=== PATIENT | female | born 1985 | race Asian ===

== ENCOUNTER 2017-09-06 19:31 | Inpatient (IN) | payer MEDICAID ==
[~2017-09-06] VITALS: Ht 152.4 cm; Wt 65.8 kg
[2017-09-06] MEDS ORDERED: fentaNYL CITR 100 MCG/2 ML AMP IVP PRN (21:10)
[2017-09-06] MEDS ORDERED: ACETAMINOPHEN 325 MG TAB PO PRN (21:10)
[2017-09-06] MEDS ORDERED: ONDANSETRON 4 MG/2 ML VIAL IVP PRN (21:10)
[2017-09-06] MEDS ORDERED: FAMOTIDINE 20 MG TAB PO PRN (21:10)
[2017-09-06 21:14] VITALS: BP 114/77; Ht 152.4 cm; Wt 65.8 kg
[2017-09-06] MEDS ORDERED: CALC-515 PO (21:53)
[2017-09-06] MEDS ORDERED: PREN-127 PO (21:53)
[2017-09-06 21:56] LABS: PLATELET COUNT, AUTOMATED 157 K/uL (150-450)
[2017-09-06] MEDS ORDERED: OXYTOCIN 30 UNIT/D5LR 500 ML 500 ML IV PRN (22:30)
[2017-09-06] MEDS: LR(*) 1000 ML BAG 1,000 ML IV PRN (23:34)
--- NOTE | 2017-09-07 05:39 | History & Physical ---
History of Present Illness Age of Patient: 31 : 1 Para or TPAL: 0 EDC per LMP: Sep 08, 2017 EDC per U/S: Sep 09, 2017 Estimated Gestational Age: 39.6 Chief Complaint Water Broke History of Present Illness Pt is a 31 y/o @ 39-6/7 weeks gestation who presents to L&D with a chief complaint of "I think my water broke." Pt reports a large gush of fluid around 1830 last night. Pt denies any color to the fluid. Good movement. No vaginal bleeding. History Patient's Blood Type: O Positive Rubella Status: Immune Group B Strep Screen: Negative Obstetrical History: Past Medical History: Coffee intolerance Allergies: Uncoded Allergies: NKDA (Allergy, Unknown, 09/06/17) Social History: Denies X 3 Med Rec Home Meds Reported Medications Calcium Carbonate (TUMS) 200 Mg Tab.chew, 200 MG PO Y for HEARTBURN, TAB.CHEW 09/06/17 Vits W-Ca,Fe,Fa(<1MG) ( VITAMINS) 1 Each Tablet, 1 EACH PO DAILY, TAB 09/06/17 Review of Systems All Systems Reviewed/Normal: Yes, Except as Noted Constitutional: No Fever, No Weight Loss, No Weight Gain, No Chills, No Night Sweats, No Other Neurological: No Syncope, No Confusion, No Weakness, No Dizziness, No Slurred Speech, No Other Eyes: No Vision Change, No Loss of Vision, No Photophobia, No Other ENT: No Hearing Loss, No Sinus Congestion, No Sore Throat, No Ear Ache, No Tinnitus, No Other Cardiovascular: No Chest Pain, No Palpitations, No Orthostatic Hypotension, No Other Respiratory: No Shortness of Breath, No Cough, No Wheezing, No Other Gastrointestinal: No Nausea, No Vomiting, No Diarrhea, No Dysphagia, No Constipation, No Early Satiety, No Hematemesis, No Hematochezia, No Melena, No Abdominal Pain, No Other Genitourinary: No Dysuria, No Hematuria, No Urinary Incontinence, No Other Musculoskeletal: No Pain, No Sprain, No Strain, No Impaired Mobility, No Other Psychiatric: No Depression, No Anxiety, No Other Exam General Exam Vital Signs Vital Signs Date Time Temp Pulse Resp B/P (MAP) Pulse Ox O2 Delivery O2 Flow Rate FiO2 09/06/17 21:14 98.4 90 16 114/77 (89) General Apperance: Alert/Awake/No Acute Distress Neuro: No Gross deficits Eyes: Normal Extraocular Movement & Vison, PERRLA ENT: Normal Cardiovascular: Regular Rate and Rhythm Respiratory: No Respiratory Distress, Clear to Auscultation Abdomen: Soft, Non-Tender, Non-Distended, Gravid - Non-Tender : Normal Musculoskeletal: No Weakness/Pain Extremities: No Cyanosis,Clubbing or Edema Integumentary: Skin Intact without Lesions or Rash Psychological: Appropriate Mood & Affect Cervical Dialation: 3 Cervical Effacement (%): 90 Cervical Consistency: Soft Cervical Position: Anterior Station: -3 Presentation: Vertex (confirmed by bedside sono) Uterine Contractions(Q min): 3 Uterine Contraction Strength: Mild UC Resting Tone: Soft Fetus Feeling Movement?: Yes Heart Tones: 125 Heart Tone Variabilty: Moderate FHT Accelerations: 15X15 FHT Decelerations: None FHT Category: I Medical Decision Making Data Points Result Diagram: 09/06/172143 Pre-Admit Course Medical Record Review: Yes VTE Prophylasis: Adult Deep Vein Thrombosis/Pulmonary: No Assessment and Plan MANAGER BUSINESS SYSTEMS Assessment: Stable Problems: (1) 39 weeks gestation of (2) Rupture of membranes with clear amniotic fluid Assessment & Plan: Made no cervical change after 2 hours. Augmented with Oxytocin. Pt doesn't desire epidural at this time. PUMA CUNNINGHAM DO Sep 07, 2017 05:38
--- NOTE | 2017-09-07 07:18 | Labor Progress Note ---
Labor Subjective Progress Notes Subjective Breathing through contractions. Feeling Movement?: No Vaginal Discharge/Fluid: Bloody Show Labor Pain: Mild Neurological: No Headache, No Other Eyes: No Visual Disturbances Labor Objective Vital Signs Vital Signs Date Time Temp Pulse Resp B/P (MAP) Pulse Ox O2 Delivery O2 Flow Rate FiO2 09/06/17 21:14 98.4 90 16 114/77 (89) Cervical Dialation: 4 Cervical Effacement (%): 90 Cervical Consistency: Soft Cervical Position: Anterior Station: -1 Presentation: Vertex Uterine Contractions(Q min): 3 Uterine Contraction Strength: Moderate UC Resting Tone: Soft Fetus Heart Tones: 125 Heart Tone Variabilty: Moderate FHT Accelerations: 15X15 FHT Decelerations: None FHT Category: I Other Result Diagram: 09/06/172143 Assessment and Plan SYSTEMS SOFTWARE ENGINEER Assessment: Stable SYSTEMS SOFTWARE ENGINEER Plan: Routine Labor/Induct Care Problems: (1) 39 weeks gestation of Assessment & Plan: Significant change of station but no change in dilation. Will increase oxytocin. Pt desires to go with out an epidural. (2) Rupture of membranes with clear amniotic fluid PUMA CUNNINGHAM DO Sep 07, 2017 07:18
[2017-09-07] MEDS: LR(*) 1000 ML BAG 1,000 ML IV PRN (07:33)
--- NOTE | 2017-09-07 08:49 | Labor Progress Note ---
Labor Subjective Progress Notes Subjective Oxytocin at 4 milliunits/minute, with contractions Q 2-3.5 minutes. Tolerating contractions well, without analgesia. Labor Objective Vital Signs Vital Signs Date Time Temp Pulse Resp B/P (MAP) Pulse Ox O2 Delivery O2 Flow Rate FiO2 09/06/17 21:14 98.4 90 16 114/77 (89) Cervical Dialation: 6 Cervical Effacement (%): 100 Station: -1 Fetus Heart Tones: 120 FHT Category: I Other Result Diagram: 09/06/179 Assessment and Plan Problems: (1) 39 weeks gestation of Assessment & Plan: Good progress in labor. Continue IV Oxytocin. Still not interested in epidural. (2) Rupture of membranes with clear amniotic fluid WESTON SIMMONS MD Sep 07, 2017 08:49
[2017-09-07] MEDS ORDERED: LANOLIN OINT 7 GM TUBE TP PRN (15:40)
[2017-09-07] MEDS ORDERED: HYDROmorphone HCL 2 MG TAB PO PRN (15:40)
[2017-09-07] MEDS ORDERED: HYDROCORTISONE 2.5% CR 30GM TB PR PRN (15:40)
[2017-09-07] MEDS ORDERED: GLYCERIN/WITCH HAZEL LEAF 1 PK TP PRN (15:40)
[2017-09-07] MEDS ORDERED: BENZOCAINE 20% 60 ML BTL TP PRN (15:40)
--- NOTE | 2017-09-07 15:47 | OB Delivery Note ---
Delivery Note Vaginal Delivery Type: Spont. Vaginal Delivery Delivery Date: Sep 07, 2017 Delivery Time: 15:03 Estimated Gestational Age(wks): 39 6/7 Length of Labor Stage I (hrs): 9.06 Length of Labor Stage II (hrs): 1.46 Labor Stage III (minutes): 7 Delivery Anesthesia: Local, IV Opiate Sex: Female Infant Weight (gms): 3092 (6# 13.1 oz) Antlers Apgars: 1 Minute (8), 5 Minute (9) Repair Needed: Laceration, Perineal (midline), 2nd Degree Estimated Blood Loss: 400 (mildly less than average) Delivery Complications: Laceration Notes: Spontaneous controlled vaginal delivery over an intact perineum of a health female infant. 2nd degree midline perineal laceration, repaired like an episiotomy in layers with a continuous suture of 3-0 Vicryl. Digital rectal exam shows no sutures or defects in the rectum. No other complications. Mushroom Sorter Grader in Attendence: No Copies to: WESTON SIMMONS MD, MARK F MD Sep 07, 2017 15:47
[2017-09-07] MEDS ORDERED: IBUPROFEN 800 MG TAB PO SCH (17:00)
[2017-09-07 18:10] VITALS: BP 118/71
[2017-09-07] MEDS ORDERED: LIDOCAINE 1% LOCAL 300 MG/30ML INJ ONE (18:55)
[2017-09-07] MEDS: IBUPROFEN 800 MG TAB PO SCH (19:42)
[2017-09-07 20:20] VITALS: BP 116/73
[2017-09-07] MEDS: DOCUSATE CALCIUM 240 MG CAP PO SCH (21:00)
[2017-09-08] VITALS (7 sets, daily range): BP systolic 98–121; BP diastolic 58–73
[2017-09-08] MEDS: IBUPROFEN 800 MG TAB PO SCH ×3 (02:30→21:10)
--- NOTE | 2017-09-08 07:53 | OB/GYN Progress Note ---
OB Subjective Progress Notes Subjective Feels well, wants to go home later today. Ambulating and voiding well. Perineum OK, still somewhat tender and swollen. Lochia decreasing. Baby starting to feed better. OB Objective Physical Exam Vital Signs Date Time Temp Pulse Resp B/P (MAP) Pulse Ox O2 Delivery O2 Flow Rate FiO2 09/08/17 03:40 98.0 109 16 106/70 (82) 97 Room Air General Appearance: Alert/Awake/No Acute Distress Cardiovascular: Regular Rate and Rhythm Respiratory: No Respiratory Distress, Clear to Auscultation Abdomen: Bowel Sounds Present, Fundus Firm (at U), Non-Tender Extremities: No Cyanosis,Clubbing or Edema, No Tender Calves Psychological: Alert & Oriented X3, Appropriate Mood & Affect Result Diagram: 09/08/17 0630 Assessment and Plan Problems: (1) Encounter for care and examination of mother immediately after delivery Assessment & Plan: Doing well , desiring discharge later today. Reviewed discharge instructions and precautions. (2) 39 weeks gestation of Status: Resolved (3) Rupture of membranes with clear amniotic fluid Status: Resolved WESTON SIMMONS MD Sep 08, 2017 07:53
[2017-09-08] MEDS ORDERED: Benzocaine 60 ML TP (07:57)
[2017-09-08] MEDS ORDERED: TUCKS TP (07:57)
[2017-09-08] MEDS ORDERED: ANUHC30T PR (07:57)
[2017-09-08] MEDS ORDERED: DOCU240C67 PO (07:57)
[2017-09-08] MEDS ORDERED: Lanolin TP (07:57)
[2017-09-08] MEDS ORDERED: IBUP800T37 PO (07:57)
--- NOTE | 2017-09-08 07:59 | OB/GYN Discharge Summary ---
Discharge Summary Reason for Hosp/Final Diag: (1) Encounter for care and examination of mother immediately after delivery Status: Acute Hospital Course & Plan: After normal spontaneous delivery of a healthy female infant, the patient had no problems. She was discharged home with her baby more than 24 hours after delivery, in good condition. (2) 39 weeks gestation of Status: Resolved (3) Rupture of membranes with clear amniotic fluid Status: Resolved Lates Vital Signs Vital Signs Date Time Temp Pulse Resp B/P (MAP) Pulse Ox O2 Delivery O2 Flow Rate FiO2 09/08/17 03:40 98.0 109 16 106/70 (82) 97 Room Air Weight (Pounds): 145 Result Diagram: 09/08/17 0630 Condition: Improved Discharge: Home, Self [facility] Meds Reported Medications Calcium Carbonate (TUMS) 200 Mg Tab.chew, 200 MG PO Y for HEARTBURN, TAB.CHEW 09/06/17 Vits W-Ca,Fe,Fa(<1MG) ( VITAMINS) 1 Each Tablet, 1 EACH PO DAILY, TAB 09/06/17 [facility] [phone] Follow up in: 6 wks PP or PO Discharge Diet: As Tolerates Discharge Activity: As Tolerates Copies to: WESTON SIMMONS MD, MARK F MD Sep 08, 2017 07:59
[2017-09-08] MEDS: MULTIVITAMINS (PRENATAL) TAB PO SCH (09:44)
[2017-09-08] MEDS: DOCUSATE CALCIUM 240 MG CAP PO SCH ×2 (09:44→21:10)
[2017-09-09 04:35] VITALS: BP 111/70
[2017-09-09] MEDS: IBUPROFEN 800 MG TAB PO SCH (05:27)
[2017-09-09 08:50] VITALS: BP 108/70
--- NOTE | 2017-09-09 08:53 | OB/GYN Progress Note ---
OB Subjective Progress Notes Subjective Feeling fine. Yesterday's discharge cancelled due to breast feeding problems, but those problems are now solved. Ambulating and voiding well. Mild lochia. Wants to go home. Baby doing well. OB Objective Physical Exam Vital Signs Date Time Temp Pulse Resp B/P (MAP) Pulse Ox O2 Delivery O2 Flow Rate FiO2 09/09/17 04:35 98.2 95 16 111/70 (84) Room Air 09/08/17 13:00 98 General Appearance: Alert/Awake/No Acute Distress Cardiovascular: Regular Rate and Rhythm Respiratory: No Respiratory Distress, Clear to Auscultation Abdomen: Bowel Sounds Present, Fundus Firm (at U-1), Non-Tender Extremities: No Cyanosis,Clubbing or Edema, No Tender Calves Psychological: Alert & Oriented X3, Appropriate Mood & Affect Result Diagram: 09/08/17 0630 Assessment and Plan Problems: (1) Encounter for care and examination of mother immediately after delivery Status: Acute Assessment & Plan: Doing well . Baby also doing better. Discharge home today. (2) 39 weeks gestation of Status: Resolved (3) Rupture of membranes with clear amniotic fluid Status: Resolved WESTON SIMMONS MD Sep 09, 2017 08:34
[2017-09-09] MEDS: MULTIVITAMINS (PRENATAL) TAB PO SCH (09:13)
[2017-09-09] MEDS: DOCUSATE CALCIUM 240 MG CAP PO SCH (09:13)
[2017-09-09 11:40] VITALS: BP 114/78
== END 2017-09-09 12:42 | disposition home or self-care (01) | DRG 775 ==
LOC: OBSVTOIN 19:31 → OB 19:31
PROVIDERS: ADMIT Student in an Organized Health Care Education/Training Program; ATTEND Student in an Organized Health Care Education/Training Program
PROC: 10E0XZZ Delivery of Products of Conception, External Approach (ICD-10-PCS; principal; 2017-09-07)
PROC: 0KQM0ZZ Repair Perineum Muscle, Open Approach (ICD-10-PCS; 2017-09-07)
DX: O42.02 Full-term premature rupture of membranes, onset of labor within 24 hours of rupture (principal); O70.1 Second degree perineal laceration during delivery; Z3A.39 39 weeks gestation of pregnancy; Z37.0 Single live birth
CPT/HCPCS: 36415; 84112; 85025; 85027; 86850; 86900; 86901; J2001; J2590; J3010; J7120